=== PATIENT | male | born 1965 | race Caucasian/White ===

== ENCOUNTER → 2024-05-02 | Outpatient (CLI) | payer OTHER ==
--- NOTE | 2024-05-02 15:54 | CT ---
EXAMINATION TYPE: CT chest wo/w con CT DLP: 1105 mGycm, Automated exposure control for dose reduction was used. DATE OF EXAM: 05/02/2024 3:15 PM COMPARISON: None available CLINICAL INDICATION:Male, 58 years old with history of R91.8 PULM NODULES; PHH, nodules TECHNIQUE: Multiple axial images were obtained through the chest before and after the administration of 100 cc of Isovue-370 intravenously . Coronal and sagittal reformats reviewed. FINDINGS: LUNGS/ PLEURA: No pleural effusion, pneumothorax, focal consolidation. Mild centrilobular and parase ptal emphysematous changes. Peripheral right upper lobe 3.3 mm pulmonary nodule (series 7, image 27). Peripheral right middle lobe 2.3 mm pulmonary nodule (series 7, image 34). Peripheral right middle l obe 2.8 mm pulmonary nodule (series 7, image 40). AIRWAY: Patent and unremarkable.. HEART: Size within normal limits.No pericardial effusion. Small coronary artery calcifications. MEDIASTINUM: No evidence of adenopathy. VASCULATURE: Aneurysmal fusiform dilatation of the ascending thoracic aorta measuring 4.0 cm. The ao rtic root measures up to 3.6 cm. The descending thoracic aorta measures up to 2.7 cm. Mild atheroscle rotic calcification of the aorta and its branches. Bovine aortic arch. MUSCULOSKELETAL: No acute osseous abnormalities. Remote bilateral rib fractures. Schmorl's node invol ving the superior endplate of the L1 vertebral body. Mild multilevel degenerative disc disease. SOFT TISSUES/LYMPH NODES: Mild bilateral gynecomastia. LOWER NECK: Enlarged multinodular thyroid gland with the right thyroid lobe nodule measuring up to 2. 8 cm. UPPER ABDOMEN: No significant findings. IMPRESSION: 1. Few pulmonary nodules measuring less than 4 mm. In a low-risk patient, no follow-up is recommended . In a high-risk patient consider optional CT chest in 12 months. 2. Mild COPD changes. 3. Multinodular thyroid gland with thyroid nodules measuring up to 2.8 cm. Recommend further evaluati on with thyroid ultrasound if not previously performed. 4. Ascending thoracic aortic aneurysm measured 4.0 cm. [facility], , 05/02/2024 3:52 PM
== END | disposition home or self-care (01) ==
LOC: RADCTMAIN 14:47
PROVIDERS: ATTEND Family Medicine
DX: J44.9 Chronic obstructive pulmonary disease, unspecified (principal); R91.8 Other nonspecific abnormal finding of lung field; E04.2 Nontoxic multinodular goiter; I71.21 Aneurysm of the ascending aorta, without rupture; I70.0 Atherosclerosis of aorta
CPT/HCPCS: 71270; Q9967

== ENCOUNTER → 2024-06-18 | Outpatient (CLI) | payer OTHER ==
--- NOTE | 2024-06-18 15:15 | US ---
EXAMINATION TYPE: US thyroid st tissue head/neck DATE OF EXAM: 06/18/2024 COMPARISON: NONE CLINICAL INDICATION: Male, 58 years old with history of E04.2 MULTIPLE NODULES;Thyroid nodules. TECHNIQUE: Grayscale and color Doppler imaging of the thyroid gland. FINDINGS: GLAND SIZE: Right Lobe: 6.6 x 3.6 x 1.5 cm Overall Parenchyma: heterogeneous Left Lobe: 5.3 x 2.9 x 2.6 cm Overall Parenchyma: heterogeneous Isthmus Thickness: .5 cm NODULES RIGHT: # of nodules measured on right: Multiple nodules seen measured largest. 1. 4.4 X 3.3 x 4.8 cm, lower medial, solid or almost completely solid, hypoechoic nodule, which is wider than tall, with smooth margins, without echogenic foci. TR4 Prior size: No previous. LEFT: # of nodules measured on left: Multiple measured largest. 1. 3.7 X 2.4 x 2.1 cm, lower medial, solid or almost completely solid, hypoechoic nodule, which is wider than tall, with smooth margins, without echogenic foci. TR4 Prior size: No previous. ISTHMUS: # of nodules measured in the isthmus: 0 Bilateral neck scanned, no evidence of lymphadenopathy. Heterogeneous enlarged thyroid gland. IMPRESSION: Clinically significant bilateral thyroid nodules. Ultrasound-guided FNA advised to rule out malignanc y bilaterally. 2017 ACR TI-RADS LEVEL: TR-RADS 4 - Moderately Suspicious: Follow if > 1 cm, FNA if > 1.5 cm *Highest TI-RADS level nodule reported [email or web address] [facility], , 06/18/2024 3:13 PM
== END | disposition home or self-care (01) ==
LOC: RADUSWWP 14:43
PROVIDERS: ATTEND Family Medicine
DX: E04.2 Nontoxic multinodular goiter (principal)
CPT/HCPCS: 76536

== ENCOUNTER 2024-07-31 12:50 | Day surgery (SDC) | payer OTHER ==
[2024-07-31] MEDS: ALPRAZolam 0.5 MG TAB PO STA (13:33)
[2024-07-31 13:36] VITALS: TEMP 98.1
[2024-07-31 14:57] VITALS: BP 145/81; PULSE 62; RESP 18
--- NOTE | 2024-07-31 15:50 | US ---
EXAMINATION TYPE: US FNA thyroid first lesion US FNA thyroid each add lesion, DATE OF EXAM: 07/31/2024 3:04 PM COMPARISON: 06/18/2024 CLINICAL INDICATION: Male, 58 years old with history of E04.2 NONTOXIC MULTINODULAR GOITER, Two TR4 f or nodules referred for FNA. RADIOLOGIST: Dr. Ibarra PROCEDURE: An initial scanning showed solid heterogeneous TR 4 nodules: * (1) 4.4 cm right mid to lower pole and * (2) 3.7 cm left lower pole. These are targeted for FNA. The procedure, along with the risks and complications were discussed with the patient. Patient agreed to proceed with the procedure. A consent was signed and placed in patient's chart. Maximum sterile barrier technique was utilized. Timeout was performed by myself. Both sides of the ne ck were sterilely prepped and draped in the usual fashion. A total of 10 mL of 1% Lidocaine were util ized to anesthetize the superficial and deep soft tissues at each nodule in turn. Following that, under ultrasound guidance, 5 passes were made into each nodule with 5 cc syringe suct ion. After each pass, the sample was placed on a slide and then sent for pathology. Upon conclusion, hemostasis was achieved, and patient was discharged home in satisfactory condition. IMPRESSION: Successful FNA of dominant TR4 nodules, one on either side (right mid to lower pole 4.4 cm and left l ower pole 3.7 cm). Pathology pending. [facility], , 07/31/2024 3:47 PM
== END 2024-07-31 15:00 | disposition home or self-care (01) ==
LOC: RADPROMAIN 12:50
PROVIDERS: ATTEND Family Medicine
DX: E04.2 Nontoxic multinodular goiter (principal)
CPT/HCPCS: 10005; 10006; 88173; 88305